=== PATIENT | female | born 1985 | race Caucasian/White ===

== ENCOUNTER 2017-10-23 13:32 | Emergency (ER) | payer MEDICAID ==
[~2017-10-23] VITALS: Ht 170.2 cm; Wt 86.2 kg
[~2017-10-23 13:32] MED LIST: ANAPROX DS550 MG PO; CIPRO 250MG TA250 MG PO; DARVOCET-N 1001 EACH PO; NOMEDS; PHENERGAN 25MG.25 M1 PO; SUBOXONE 8 MG-21 FIL SL; ULTRAM 50 MG TA50 MG PO
--- OUTSIDE RECORDS SUMMARY | 2017-10-23 13:38 | External Medical Summary Rpt | CCD ---
Author Author [employer] Organization [employer] Address Unknown Phone Unavailable Purpose Continuity of Care Document - through 2016
--- OUTSIDE RECORDS SUMMARY | 2017-10-23 13:38 | External Medical Summary Rpt | CCD ---
Author Author , GOMEZ Organization [employer] Address Unknown Phone [email or web address] Care Team Providers Care Car Distributor Name Role Phone Zohreh Acosta MD, Unavailable Unavailable Zohreh Acosta MD Purpose Continuity of Care Document - 04-27-2013 through 2016 Problems Code Diagnosis DOS Provider Status 346.90 346.90 04-27-2013 [facility] W/O INTRACT MGRN W/O STATUS MIGRAINOSUS R60.9 EDEMA, UNSPECIFIED Allergies, Adverse Reactions, Alerts Type Drug Allergy Adverse Reaction to Substance Substance Reaction Severity Penicillin Unknown Unknown Penicillin G Unknown Unknown Medications Na ND Rx Da Fi Fi Am Da Di Ph RX Ph St me C No te ll ll ou ys ag ar # ys at rm s nt no ma ic us Or Da si cy ia de te s n re d SO 00 06 0 No DI 40 -0 UM 97 5- Lo 98 20 ng CH 30 13 er LO 9 RI Ac DE ti ve 0. 9% SO AMELIA TI ON Sa 63 06 0 No li 80 -0 ne 70 5- Lo 10 20 ng Fl 07 13 er us 5 h Ac 10 ti ML ve Sy ri ng e ON 00 06 0 No DA 64 -0 NS 16 5- Lo ET 08 20 ng RO 02 13 er N 5 HC Ac L ti 4 ve MG /2 ML AL De 00 06 0 No xa 51 -0 me 74 5- Lo th 90 20 ng as 12 13 er on 5 e Ac 4M ti G/ ve Ml Sd v ME 00 06 0 No TO 40 -0 CL 93 5- Lo OP 41 20 ng RA 40 13 er MT 1 DE Ac ti 10 ve MG /2 ML AL DI 00 06 0 No PH 40 -0 EN 92 5- Lo HY [address] 03 13 er AM 1 IN Ac E ti 50 ve MG /M L SY RN G KE 00 06 0 No TO 40 -0 RO 93 5- Lo LA 79 20 ng C 50 13 er 30 1 Ac MG ti /M ve L AL Vital Signs 04-27-2013 15:27 Name Value Interpretat Reference Comment ion Range Body 98.1 [degF] Temperature BP 72 mm[Hg] Diastolic BP Systolic 133 mm[Hg] Heart 77 /min Rate/Pulse O2% 98 % Respiratory 18 /min Rate 04-27-2013 15:18 Name Value Interpretat Reference Comment ion Range BP 63 mm[Hg] Diastolic BP Systolic 130 mm[Hg] Heart 77 /min Rate/Pulse O2% 99 % Respiratory 18 /min Rate Encounters Encounter Start End Date Code Location Performer Type Date Emergency MARIA TERESA Acosta MD (ER) 3 14:40 3 15:35 [facility]
--- OUTSIDE RECORDS SUMMARY | 2017-10-23 13:38 | External Medical Summary Rpt ---
Author Author GOMEZ Mims, GOMEZ Mims Organization [employer] Address Unknown Phone Unavailable
--- OUTSIDE RECORDS SUMMARY | 2017-10-23 13:38 | External Medical Summary Rpt ---
Author Author GOMEZ Mims, GMOEZ Mims Organization [employer] Address Unknown Phone Unavailable
--- OUTSIDE RECORDS SUMMARY | 2017-10-23 13:38 | External Medical Summary Rpt | CCD ---
Author Author , GOMEZ Organization [employer] Address Unknown Phone [email or web address] Care Team Providers Care Jack Machine Operator Name Role Phone Zohreh Acosta MD, Unavailable Unavailable Zohreh Acosta MD Purpose Continuity of Care Document - 04-27-2013 through 2016 Problems Code Diagnosis DOS Provider Status 346.90 346.90 04-27-2013 [facility] W/O INTRACT MGRN W/O STATUS MIGRAINOSUS R60.9 [...] 41 20 ng RA 40 13 er VT 1 DE Ac ti 10 ve MG [...] Acosta MD (ER) 3 14:40 3 15:35 [facility]
--- OUTSIDE RECORDS SUMMARY | 2017-10-23 13:38 | External Medical Summary Rpt | CCD ---
Author Author , GOMEZ Organization [employer] Address Unknown Phone [email or web address] Immunization Name Date Rout CVX Reac Dose Comm Prov Is Faci e tion ent ider Refu lity Give sed n Hep 06-1 42 999 Hist H149 No H149 B, 7-19 oric adol 97 al Info High rmat Ris ion - Sour ce Unsp ecif ied Hep 10-2 8 999 Hist H149 No H149 B, 1-19 oric ped/ 96 al adol Info rmat ion - Sour ce Unsp ecif ied Hep 09-0 42 999 Hist H149 No H149 B, 3-19 oric adol 96 al Info High rmat Ris ion - Sour ce Unsp ecif ied MMR 07-1 3 999 Hist H149 No H149 1-19 oric 96 al Info rmat ion - Sour ce Unsp ecif ied
--- OUTSIDE RECORDS SUMMARY | 2017-10-23 13:38 | External Medical Summary Rpt | CCD ---
Author Author , GOMEZ Organization [employer] Address Unknown Phone [email or web address] Immunization Name Date Rout CVX Reac Dose [...]
[2017-10-23] MEDS ORDERED: ZITHROMAX Z PA250 MG PO (14:03)
[2017-10-23] MEDS ORDERED: FLONASE 50 MCG16 GM (14:03)
[2017-10-23] MEDS ORDERED: MEDROL 4MG. DOSE4 MG PO (14:03)
[2017-10-23] MEDS ORDERED: BROMFED DM COU118 ML PO (14:04)
--- NOTE | 2017-10-23 14:04 | Urgent Treatment Center Report ---
History of Present Issue Date/Time Seen by Provider 10/23/17 1352 Visit Reason Pt arrived:Walked Presenting Problem:EARACHE, COUGH, CONGESTION SORE THROAT BEGAN THURSDAY Location if Accident: Onset of symptoms date/time:/ or onset unknown for:MEDICAL HX UNKNOWN Have you (or family members/close friends) recently traveled outside the [place]? N If Yes, where/when: Have you had exposure to infectious disease within the past month? TB? Other? Specify: Patient state that she has been having sinus pain and pressure for over a week now that has not improved State that she has been having cough, congestion and sore throat along with feeling of pressure in her sinuses and ears State that she decided to come in and get checked out after she noticed that her drainage changed and appeared more thicker ALLERGIES Coded Allergies: Penicillins (Severe, throat swelling 10/14/16) Home Medications Reported Medications BUPRENORPHINE HCL/NALOXONE HCL (Suboxone 8 MG-2 MG Sl Film) 1 FILM SL BID History Medical History General CAD? No Angina: No TN: No Hypertension? No Hyperlipidemia? No CHF? No DVT? No PE? No COPD? No Asthma? Yes Anemia? No GERD? No Gastric ulcers? No GI Bleed? No Hernia? No Thyroid Problems? No Hypothyroidism? No CVA? No Seizures? No Diabetes? No Renal Insuffiency? No UTI? Yes Stones? Yes BPH? No GB Disease: Yes Nephritic Syndrome? No Asplenia? No Hepatitis? No Sickle Cell Disease? No Arthritis? No Migraines? No Cataracts? No Glaucoma? No MRSA? No HIV? No TB? No Anxiety? No Depression? No Cancer? No More? 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 Respiratory cough, denies shortness of breath, denies wheezing Physical Exam Vital Signs Vital Signs Date Time Temp Pulse Resp B/P Pulse O2 O2 Flow FiO2 Ox Delivery Rate 10/23 1341 97.7 90 18 114/89 98 General Appearance normal appearance, WD/WN, no apparent distress Ear, Nose, Throat sinus pain/drainage, nasal congestion, Throat red, irritated drainage noted in back of throat Respiratory Status Yes: trachea midline, chest symmetrical, non tender chest. No: respiratory distress. Lung Sounds bilateral: normal breath sounds, lungs clear. Cardiovascular normal exam, regular rate/rhythm, no peripheral edema Neurologic alert, normal exam, oriented x 3 Medical Decision Making LABS/Meds/Orders Pt receiving controlled substance in ED? No Results/Orders Laboratory Tests 10/23/17 1349: Group A Strep Screen NOT DETECTED Orders Procedure Date/time Status [facility] STREP SCREEN 10/23 1349 Complete Departure Departure Time of Disposition 1401 Disposition DC Home or Self Care(routine) Clinical Impression Primary Impression: Sinusitis Qualifiers: Sinusitis location: maxillary Chronicity: unspecified Qualified Code: J32.0 - Chronic maxillary sinusitis Condition STABLE Patient Instructions DI for Sinusitis, Sinus Headache, Sinusitis Additional Instructions Start antibiotic. Sinus infections may take 2-3 days to notice much improvement so be sure to use conservative measures as discussed for symptoms Flonase 2 spray in each nostril daily to help with nasal congestion, sinus an ear pressure/inflammation Lots of Fluids Sleep elevated Humidifer/vaporizer Discharge Counseling Counseled pt/family regarding diagnosis, medications/RX, home care, follow up needs Prescriptions Current Visit Scripts Azithromycin (Zithromycin (Z-KINGS) 250MG Tab) 250 MG PO DAILY #6 TAB TAKE TWO (2) TABLETS ON DAY 1, THEN ONE (1) TABLET DAY #2 THRU #5 Fluticasone Propionate (Flonase 50 Mcg Nasal [place]) 2 SPRAY NA DAILY #1 BOT Methylprednisolone (Medrol Dose Kings) 4 MG PO UD #1 KINGS TAKE DIRECTED ON PACKAGING D-METHORPHAN HB/P-EPD HCL/BPM (Bromfed Dm Cough Syrup) 10 ML PO Q4HP PRN cough #120 SYR at 1407
[2017-10-23 14:08] VITALS: BP 114/89
== END 2017-10-23 14:09 | disposition home or self-care (01) ==
LOC: UTC 13:32
DX: J32.0 Chronic maxillary sinusitis (principal); J45.909 Unspecified asthma, uncomplicated